=== PATIENT | female | born 1940 | race Caucasian/White ===

== ENCOUNTER 2017-04-15 05:51 | Day surgery (SDC) | payer OTHER, BC ==
[~2017-04-15] VITALS: Ht 160 cm; Wt 68.0 kg
[~2017-04-15 05:51] MED LIST: AMLODIPINE BESYL5 MG PO; ASPIRIN E.C.81 M1 PO; Ativan PO; BISOPROLOL-HCT1 EAC2 PO; CALCIUM 600 +1 EACH PO; CYANOCOBALAM1000 MCG PO; Coumadin,Jantoven PO; DOCUSATE SODIU100 MG PO; ENDOCET 5-3251 EACH PO; FERROUS SULFAT325 MG PO; Flexeril PO; LO-DOSE ASPIRIN81 M2 PO; Lovenox SC; Mobic PO; NEXIUM40 MG PO; Norvasc PO; OYST-CAL D, OS500 M1 PO; PERCOCET 5/31 TABLET PO; POTASSIUM-9999 MG PO; SIMVASTATIN10 MG PO; THERA-D2000 UNIT; THERA-D2000 UNIT PO; TYLENOL EXTRA500 MG PO; TYLENOL PM1 CAPLET PO; VITAMIN D2000 UNIT PO; VITAMIN D32000 UNIT; XARELTO15 MG PO; XARELTO20 MG PO; ZIAC 5/6.251 TABLET PO; Zestoretic,Prinzide PO; Ziac 5/6.25 PO; Zocor PO
[2017-04-15 06:18] VITALS: BP 148/70
[2017-04-15 08:45] VITALS: BP 144/75
[2017-04-15 09:41] VITALS: BP 130/62
[2017-04-15 10:10] VITALS: BP 132/63
== END 2017-04-15 10:23 | disposition home or self-care (01) ==
LOC: SDC 05:51
PROC: 0JQP0ZZ Repair Left Lower Leg Subcutaneous Tissue and Fascia, Open Approach (ICD-10-PCS; principal; 2017-04-15)
DX: T81.31XA Disruption of external operation (surgical) wound, not elsewhere classified, initial encounter (principal); Y83.8 Other surgical procedures as the cause of abnormal reaction of the patient, or of later complication, without mention of misadventure at the time of the procedure; I10 Essential (primary) hypertension; K21.9 Gastro-esophageal reflux disease without esophagitis; Z86.718 Personal history of other venous thrombosis and embolism; Z85.3 Personal history of malignant neoplasm of breast; Z79.01 Long term (current) use of anticoagulants
CPT/HCPCS: 93005; J0131; J0690; J1100; J2405; J3010

== ENCOUNTER 2017-09-01 14:16 | Emergency (ER) | payer OTHER, BC ==
[~2017-09-01] VITALS: Ht 160 cm; Wt 71.6 kg
[2017-09-01 14:55] LABS: HEMATOCRIT 44.6 % (36.0-46.0); MCH 31.2 PG (29.0-34.0); MCHC 33.6 G/DL (30.0-36.0); MCV 92.7 FL (83-99); PLATELET COUNT 203 K/uL (156-360); RBC DIS.WIDTH-CV 12.5 % (11.8-14.6); RBC DIS.WIDTH-SD 42.9 % (39-53); RED BLOOD COUNT 4.81 M/uL (3.80-5.20); WHITE BLOOD COUNT 4.7 K/uL (4.1-10.2)
[2017-09-01 15:02] LABS: INTER. NORMALIZED RATIO 1.7
[2017-09-01 15:05] LABS: PTT 38.6 SEC (25-37)
[2017-09-01 15:12] LABS: CHLORIDE 105 mEq/L (99-109); SODIUM 139 mEq/L (136-147)
[2017-09-01 15:13] LABS: GLUCOSE 82 mg/dL (70-99)
[2017-09-01 15:17] LABS: GFR ESTIMATE (CALCULATED) 57 mL/min/
[2017-09-01 15:18] LABS: UREA NITROGEN (BUN) 14 mg/dL (9-23)
[2017-09-01 15:23] LABS: TROP-I INTERPRETATION NEGATIVE; TROPONIN-I 0.07 ng/mL (0.0-0.30)
[2017-09-01 16:13] LABS: D-DIMER ELISA < 150.00 ng/mLDDU (<230)
[2017-09-01] MEDS ORDERED: IRON325 M1 PO (16:43)
[2017-09-01 17:23] LABS: TROP-I INTERPRETATION NEGATIVE; TROPONIN-I 0.05 ng/mL (0.0-0.30)
[2017-09-01 19:00] VITALS: BP 168/79
== END 2017-09-01 19:28 | disposition home or self-care (01) ==
LOC: EME 14:16
PROVIDERS: Nurse Practitioner Family
DX: R07.9 Chest pain, unspecified (principal); Z86.711 Personal history of pulmonary embolism; M79.1 Myalgia; K44.9 Diaphragmatic hernia without obstruction or gangrene; R06.00 Dyspnea, unspecified; R00.2 Palpitations; I70.0 Atherosclerosis of aorta; J98.11 Atelectasis; I10 Essential (primary) hypertension; Z86.718 Personal history of other venous thrombosis and embolism; Z85.3 Personal history of malignant neoplasm of breast; Z90.710 Acquired absence of both cervix and uterus; Z79.01 Long term (current) use of anticoagulants
CPT/HCPCS: 71046; 80048; 84484; 85027; 85379; 85610; 85730; 93005

== ENCOUNTER 2017-10-04 10:47 | Inpatient (IN) | payer OTHER, BC ==
[~2017-10-04] VITALS: Ht 162.6 cm; Wt 66.7 kg
[~2017-10-04 10:47] MED LIST changes: +IRON325 M1 PO
[2017-10-04 16:10] VITALS: BP 131/63
[2017-10-04 20:08] VITALS: BP 143/75
[2017-10-05 00:33] VITALS: BP 134/76
[2017-10-05 06:32] VITALS: BP 131/75
[2017-10-05 12:27] VITALS: BP 135/69
[2017-10-05 16:29] VITALS: BP 135/75
[2017-10-05 22:01] VITALS: BP 183/74
[2017-10-05 23:23] VITALS: BP 139/67
[2017-10-06 03:36] VITALS: BP 126/60
[2017-10-06 07:05] LABS: HEMATOCRIT 36.7 % (36.0-46.0); HEMOGLOBIN 11.9 G/DL (11.9-15.5); MCV 93.1 FL (83-99)
[2017-10-06 08:00] VITALS: BP 131/66
[2017-10-06 10:55] LABS: CHLORIDE 104 MEQ/L (99-109); CREATININE 0.8 MG/DL (0.6-1.3); GFR ESTIMATE (CALCULATED) > 59 mL/min/; GLUCOSE 86 mg/dL (70-99); POTASSIUM 4.2 MEQ/L (3.7-5.4); SODIUM 139 MEQ/L (136-147); UREA NITROGEN (BUN) 12 mg/dL (9-23)
[2017-10-06 13:18] VITALS: BP 133/70
[2017-10-06 16:00] VITALS: BP 146/67
[2017-10-06 19:49] VITALS: BP 135/70
[2017-10-06 23:42] VITALS: BP 155/70
[2017-10-07 03:57] VITALS: BP 168/72
[2017-10-07 05:53] LABS: HEMOGLOBIN 11.7 G/DL (11.9-15.5); MCV 92.8 FL (83-99)
[2017-10-07 08:08] VITALS: BP 130/60
[2017-10-07] MEDS ORDERED: ENDOCET 5-3251 EACH PO (09:20)
[2017-10-07 12:26] VITALS: BP 112/62
[2017-10-07 14:44] LABS: APPEARANCE CLOUDY ((CLEAR)); BILIRUBIN NEGATIVE; BLOOD SMALL; COLOR AMBER ((YELLOW)); GLUCOSE (STRIP) NEGATIVE; KETONES NEGATIVE; LEUKOCYTES NEGATIVE; NITRITE NEGATIVE; PROTEIN (STRIP) NEGATIVE; UROBILINOGEN 0.2 MG/DL (0.2-1.0)
[2017-10-07 14:59] LABS: RED BLOOD CELLS 0-5 /HPF (0-5)
[2017-10-07 15:00] LABS: BACTERIA RARE /HPF; EPITHELIAL CELLS RARE /HPF; MUCUS NONE SEEN /LPF; UCUL ADDED? NO; WHITE BLOOD CELLS NONE SEEN /HPF (0-5)
[2017-10-07 15:01] LABS: AMORPHOUS PHOSPHATE CRYSTALS 3+
[2017-10-07 16:30] VITALS: BP 117/57
[2017-10-07 19:30] VITALS: BP 143/64
[2017-10-07 23:39] VITALS: BP 143/69
[2017-10-08 04:06] VITALS: BP 141/60
[2017-10-08 07:46] VITALS: BP 134/74
[2017-10-08 12:05] VITALS: BP 115/78
== END 2017-10-08 13:13 | DRG 482 ==
LOC: ENRESERV 10:47 → 3EAST 10:47 → CANRESERV 12:25 → ENRESERV 12:25 → 3EAST 16:14
PROVIDERS: Orthopaedic Surgery; Physician Assistant; Urology
PROC: 0QH734Z Insertion of Internal Fixation Device into Left Upper Femur, Percutaneous Approach (ICD-10-PCS; principal; 2017-10-05)
DX: S72.012A Unspecified intracapsular fracture of left femur, initial encounter for closed fracture (principal); N99.89 Other postprocedural complications and disorders of genitourinary system; M25.531 Pain in right wrist; R33.8 Other retention of urine; F03.90 Unspecified dementia, unspecified severity, without behavioral disturbance, psychotic disturbance, mood disturbance, and anxiety; K59.00 Constipation, unspecified; I10 Essential (primary) hypertension; W19.XXXA Unspecified fall, initial encounter; Z87.11 Personal history of peptic ulcer disease; Z90.710 Acquired absence of both cervix and uterus; Z86.73 Personal history of transient ischemic attack (TIA), and cerebral infarction without residual deficits; Z86.718 Personal history of other venous thrombosis and embolism; Z86.711 Personal history of pulmonary embolism; Z85.3 Personal history of malignant neoplasm of breast; Z79.01 Long term (current) use of anticoagulants
CPT/HCPCS: 70450; 73110; 73502; 73522; 76000; 80048; 81003; 85014; 85018; C1713; J0131; J0690; J1170; J2175; J2270; J2405; J3010; J7120

== ENCOUNTER 2017-10-24 21:47 | Observation (INO) | payer OTHER, BC ==
[~2017-10-24] VITALS: Ht 162.6 cm; Wt 74.2 kg
[2017-10-24 22:32] LABS: BASOPHIL (%) 0.4 % (0-1); EOSINOPHIL (%) 0 % (0-5); HEMATOCRIT 38.2 % (36.0-46.0); HEMOGLOBIN 12.6 G/DL (11.9-15.5); IMMATURE GRANULOCYTE (%) 0.2 % (0.0-0.7); LYMPHOCYTE (%) 19.5 % (15-42); MCV 93.9 FL (83-99); MONOCYTE (%) 8.1 % (3-12); MONOCYTE COUNT 0.4 K/uL (0-0.8); NEUTROPHIL (%) 71.8 % (45-76); NEUTROPHIL COUNT 3.7 K/uL (1.8-6.4); PLATELET COUNT 226 K/uL (156-360); RBC DIS.WIDTH-CV 13.2 % (11.8-14.6); RBC DIS.WIDTH-SD 44.8 % (39-53); RED BLOOD COUNT 4.07 M/uL (3.80-5.20); WHITE BLOOD COUNT 5.2 K/uL (4.1-10.2)
[2017-10-24 22:38] LABS: INTER. NORMALIZED RATIO 2.1
[2017-10-24 22:41] LABS: PTT 37.4 SEC (25-37)
[2017-10-24 22:44] LABS: CHLORIDE 107 mEq/L (99-109); POTASSIUM 3.8 mEq/L (3.7-5.4); SODIUM 141 mEq/L (136-147)
[2017-10-24 22:45] LABS: GLUCOSE 95 mg/dL (70-99)
[2017-10-24 22:49] LABS: CREATININE 0.9 mg/dL (0.6-1.3); GFR ESTIMATE (CALCULATED) > 59 mL/min/
[2017-10-24 22:50] LABS: UREA NITROGEN (BUN) 16 mg/dL (9-23)
[2017-10-24 22:54] LABS: TROP-I INTERPRETATION NEGATIVE; TROPONIN-I 0.05 ng/mL (0.0-0.30)
[2017-10-25 00:45] LABS: APPEARANCE CLEAR ((CLEAR)); BILIRUBIN NEGATIVE; BLOOD NEGATIVE; COLOR STRAW ((YELLOW)); GLUCOSE (STRIP) NEGATIVE; KETONES NEGATIVE; LEUKOCYTES NEGATIVE; NITRITE NEGATIVE; PROTEIN (STRIP) NEGATIVE; SPECIFIC GRAVITY 1.009 (1.000-1.030); UCUL ADDED? NO; UROBILINOGEN 0.2 MG/DL (0.2-1.0)
[2017-10-25] MEDS ORDERED: OMEPRAZOLE40 M1 PO (01:45)
[2017-10-25] MEDS ORDERED: SENNA8.6 MG PO (01:46)
[2017-10-25] MEDS ORDERED: COLACE100 MG PO (01:47)
[2017-10-25] MEDS ORDERED: ANTIVERT25 MG PO (01:48)
[2017-10-25] MEDS ORDERED: TYLENOL REGULA325 MG PO (01:48)
[2017-10-25] MEDS ORDERED: DULCOLAX10 MG PR (01:48)
[2017-10-25] MEDS ORDERED: PHILLIPS'400 MG/5 M PO (01:48)
[2017-10-25] MEDS ORDERED: OXYCODONE HCL5 M1 PO ×2 (01:49→12:37)
[2017-10-25] MEDS ORDERED: MIRALAX17 GM PO (01:49)
[2017-10-25] MEDS ORDERED: OXYCODONE HCL5 MG PO ×2 (01:51→12:37)
[2017-10-25 03:38] VITALS: BP 140/65
[2017-10-25 07:53] VITALS: BP 143/72
[2017-10-25 11:46] VITALS: BP 150/85
[2017-10-25 11:50] LABS: TROP-I INTERPRETATION NEGATIVE; TROPONIN-I 0.08 ng/mL (0.0-0.30)
[2017-10-25] MEDS ORDERED: METOPROLOL SUCC25 MG PO (12:37)
== END 2017-10-25 15:40 ==
LOC: EME → EDBD 21:47 → EDOF 10-25 01:44 → 5WEST 10-25 01:44 → EDOF 10-25 01:44 → ENRESERV 10-25 01:48 → 5WEST 10-25 02:43
PROVIDERS: Emergency Medicine; Physician Assistant Medical
DX: R07.9 Chest pain, unspecified (principal); R00.2 Palpitations; I10 Essential (primary) hypertension; Z86.711 Personal history of pulmonary embolism; Z86.718 Personal history of other venous thrombosis and embolism; Z86.73 Personal history of transient ischemic attack (TIA), and cerebral infarction without residual deficits; Z87.19 Personal history of other diseases of the digestive system; Z85.3 Personal history of malignant neoplasm of breast; F03.90 Unspecified dementia, unspecified severity, without behavioral disturbance, psychotic disturbance, mood disturbance, and anxiety; D50.9 Iron deficiency anemia, unspecified; K21.9 Gastro-esophageal reflux disease without esophagitis; S72.002D Fracture of unspecified part of neck of left femur, subsequent encounter for closed fracture with routine healing; Z79.01 Long term (current) use of anticoagulants; Z82.49 Family history of ischemic heart disease and other diseases of the circulatory system; Z90.710 Acquired absence of both cervix and uterus; Z90.11 Acquired absence of right breast and nipple; Z98.1 Arthrodesis status
CPT/HCPCS: 70450; 71046; 80048; 81003; 84484; 85025; 85610; 85730; 93005; 99281; 99285; G0378

== ENCOUNTER 2017-10-25 18:30 | Emergency (ER) | payer OTHER, BC ==
[~2017-10-25] VITALS: Ht 162.6 cm; Wt 69.0 kg
[~2017-10-25 18:30] MED LIST changes: +ANTIVERT25 MG PO; +COLACE100 MG PO; +DULCOLAX10 MG PR; +METOPROLOL SUCC25 MG PO; +MIRALAX17 GM PO; +OMEPRAZOLE40 M1 PO; +OXYCODONE HCL5 M1 PO; +OXYCODONE HCL5 MG PO; +PHILLIPS'400 MG/5 M PO; +SENNA8.6 MG PO; +TYLENOL REGULA325 MG PO
[2017-10-25 23:27] VITALS: BP 153/82
== END 2017-10-25 23:33 ==
LOC: EME 18:30
DX: R00.0 Tachycardia, unspecified (principal); S72.002D Fracture of unspecified part of neck of left femur, subsequent encounter for closed fracture with routine healing; X58.XXXD Exposure to other specified factors, subsequent encounter; F03.90 Unspecified dementia, unspecified severity, without behavioral disturbance, psychotic disturbance, mood disturbance, and anxiety; J98.11 Atelectasis; K44.9 Diaphragmatic hernia without obstruction or gangrene; R91.8 Other nonspecific abnormal finding of lung field; I10 Essential (primary) hypertension; Z86.711 Personal history of pulmonary embolism; Z86.718 Personal history of other venous thrombosis and embolism; Z79.01 Long term (current) use of anticoagulants; Z85.3 Personal history of malignant neoplasm of breast; Z90.710 Acquired absence of both cervix and uterus
CPT/HCPCS: 71275; 80047; 99281; 99284